=== PATIENT | female | born 1955 | race Caucasian/White ===

== ENCOUNTER 2017-09-20 21:35 | Observation (INO) | payer MEDICARE ==
[2017-09-20] MEDS ORDERED: SODIUM CHLORIDE 0.9% 1,000 ML IV STA (22:01)
--- NOTE | 2017-09-20 22:08 | ED ---
Chest Pain HPI - General Chief Complaint: Chest Pain Stated Complaint: diff breathing chest pain Time Seen by Provider: 09/20/17 21:45 Source: patient, family, RN notes reviewed Mode of arrival: ambulatory Limitations: no limitations - History of Present Illness Initial Comments: This is a 62-year-old female with a history of rheumatoid arthritis possibly asthma and she states the pain and increases risk for stroke who states she had the onset this afternoon of shortness of breath with exertion and with supine position vague mid anterior chest discomfort going from her and neck down to her lower chest wall. The chest pain was slightly. She states she did have an intermittently for last 1-2 days possibly 3 days. She states she is return from [place] about a week ago she drove her by automobile. She has no history of PE or heart disease. She states she did have a stress test about 10 years ago that was okay. MD Complaint: chest pain, other - Related Data Allergies Allergy/AdvReac Type Severity Reaction Status Date / Time codeine Allergy Dyspnea Verified 09/20/17 21:44 naproxen [From Aleve] Allergy Rash/Hives Verified 09/20/17 21:44 Penicillins Allergy Rash/Hives Verified 09/20/17 21:43 Sulfa (Sulfonamide Allergy Rash/Hives Verified 09/20/17 21:43 Antibiotics) Review of Systems ROS Statement: Those systems with pertinent positive or pertinent negative responses have been documented in the HPI. ROS Other: All systems not noted in ROS Statement are negative. EKG Findings - EKG Results: EKG: interpreted by ERMD, sinus rhythm (Sinus tachycardia rate 112 appear interval 134 QRS duration 76 QT since QTC of 324/[address]-T wave changes) Past Medical History Past Medical History: Cancer, Fibromyalgia, Hyperlipidemia, Rheumatoid Arthritis (RA) History of Any Multi-Drug Resistant Organisms: None Reported Past Surgical History: Appendectomy, Section, Orthopedic Surgery Additional Past Surgical History / Comment(s): catacrats,sinus, forehead basil cell,lt knee,jazmine foot Past Psychological History: Anxiety Smoking Status: Never smoker Past Alcohol Use History: Occasional Past Drug Use History: None Reported General Exam - General Exam Comments Initial Comments: This is a well-developed well-nourished awake alert oriented 3 Limitations: no limitations General appearance: alert, anxious Head exam: Present: atraumatic, normocephalic, normal inspection Eye exam: Present: normal appearance, PERRL, EOMI. Absent: scleral icterus, conjunctival injection, periorbital swelling ENT exam: Present: normal exam, mucous membranes moist Neck exam: Present: normal inspection. Absent: tenderness, meningismus, lymphadenopathy Respiratory exam: Present: normal lung sounds bilaterally. Absent: respiratory distress, wheezes, rales, rhonchi, stridor Cardiovascular Exam: Present: normal rhythm, tachycardia, normal heart sounds. Absent: systolic murmur, diastolic murmur, rubs, gallop, clicks GI/Abdominal exam: Present: soft, normal bowel sounds. Absent: distended, tenderness, guarding, rebound, rigid Extremities exam: Present: normal inspection, full ROM, normal capillary refill. Absent: tenderness, pedal edema, joint swelling, calf tenderness Back exam: Present: normal inspection Neurological exam: Present: alert, oriented X3, CN II-XII intact Psychiatric exam: Present: normal affect, normal mood Skin exam: Present: warm, dry, intact, normal color. Absent: rash Course Vital Signs 09/20/17 09/20/17 09/20/17 21:39 21:55 22:58 Temperature 100.1 F H Pulse Rate 118 H 113 H Respiratory 22 16 Rate Blood Pressure 173/79 164/78 O2 Sat by Pulse 99 99 98 Oximetry 09/20/17 09/20/17 23:22 23:31 Temperature Pulse Rate 116 H 112 H Respiratory 16 16 Rate Blood Pressure O2 Sat by Pulse Oximetry Chest Pain MDM - MDM I did review the imaging and report no acute findings. Patient persists in having tachycardia and dyspnea her d-dimer is negative for elevation EKG is negative for acute changes except for the tachycardia. Patient will be admitted for a rule out and further evaluation. I did discuss case with Dr. Ovalle. Cardiology will be consulted. The patient has complained of some intermittent chest pains over last several days. Cardiovascular etiology will be considered and ruled out Disposition Clinical Impression: Atypical chest pain, Tachycardia Disposition: ADMITTED IP TO THIS [facility] Condition: Stable Referrals: Gary Aly MD [Primary Care Provider] - 1-2 days
[2017-09-20 22:16] LABS: Basophils % (A) 0 %; Eosinophils # (A) 0.2 k/uL (0-0.7); Eosinophils % (A) 3 %; HCT 40.4 % (34.0-46.0); HGB 13.1 gm/dL (11.4-16.0); Lymphocytes % (A) 10 %; MCH 28.8 pg (25.0-35.0); MCHC 32.4 g/dL (31.0-37.0); Mean Platelet Volume 7.3; Monocytes # (A) 0.5 k/uL (0-1.0); Monocytes % (A) 5 %; Neutrophils # (A) 7.6 k/uL (1.3-7.7); Neutrophils % (A) 81 %; Platelet Count 209 k/uL (150-450); RBC 4.54 m/uL (3.80-5.40); WBC 9.4 k/uL (3.8-10.6)
[2017-09-20 22:27] LABS: ALT 26 U/L (9-52); AST 26 U/L (14-36); Albumin 3.8 g/dL (3.5-5.0); Alkaline Phosphatase 104 U/L (38-126); Anion Gap 12 mmol/L; Blood Urea Nitrogen 14 mg/dL (7-17); Calcium 9.2 mg/dL (8.4-10.2); Carbon Dioxide 26 mmol/L (22-30); Chloride 105 mmol/L (98-107); Creatine Kinase 41 U/L (30-135); Glucose 125 mg/dL (74-99); Sodium 143 mmol/L (137-145); Total Bilirubin 0.3 mg/dL (0.2-1.3); Total Protein 6.8 g/dL (6.3-8.2)
[2017-09-20 22:36] LABS: D-Dimer 0.55 mg/L FEU (<0.60); INR 0.9 (<1.2); Partial Thromboplastin Time 24.7 sec (22.0-30.0); Prothrombin Time 9.4 sec (9.0-12.0)
[2017-09-20 22:39] LABS: Creatine Kinase MB 0.4 ng/mL (0.0-2.4); Troponin I <0.012 ng/mL (0.000-0.034)
--- NOTE | 2017-09-20 22:41 | XR ---
EXAMINATION TYPE: XR chest 2V DATE OF EXAM: 09/20/2017 COMPARISON: 05/18/2012 HISTORY: Chest pain TECHNIQUE: Frontal and lateral views of the chest are obtained. FINDINGS: Heart and mediastinum are normal. Lungs are clear. Diaphragm is normal. There are chest le ads. Bony thorax is intact. IMPRESSION: Normal chest. No change.
[2017-09-20] MEDS ORDERED: IPRATROPIUM-ALBUTEROL 3 ML NEB INHALATION STA (23:01)
[2017-09-21] MEDS ORDERED: NITROGLYCERIN SL TABS 0.4 MG TAB SUBLINGUAL PRN (00:12)
[2017-09-21] MEDS ORDERED: HEPARIN SODIUM,PORCINE 5,000 UNIT/ML 1 ML VIAL IV ONE (00:12)
[2017-09-21] MEDS ORDERED: ASPIRIN 81 MG PO STA (00:12)
[2017-09-21] MEDS ORDERED: SODIUM CHLORIDE 0.9% 1,000 ML IV SCH (00:15)
[2017-09-21] MEDS ORDERED: HEPARIN SOD,PORK IN 0.45% NACL 25,000 UNIT in 0.45% NACL 1 500ML.BAG IV SCH (00:15)
[2017-09-21] MEDS ORDERED: HEPARIN SODIUM,PORCINE 5,000 UNIT/ML 1 ML VIAL IV PRN (00:38)
[2017-09-21 04:31] LABS: Creatine Kinase 34 U/L (30-135)
[2017-09-21 04:43] LABS: Creatine Kinase MB 0.3 ng/mL (0.0-2.4); Troponin I <0.012 ng/mL (0.000-0.034)
--- NOTE | 2017-09-21 08:58 | HP ---
HISTORY AND PHYSICAL Mrs. Andino is a 62-year-old female who has rather severe underlying rheumatoid arthritis, who developed chest pain yesterday associated with some shortness of breath and tachycardia. She felt she was just sitting and watching TV when pain developed in the anterior chest and seemed to hurt. She tried to move from side to side, get up and down and persisted and increased in severity through the night. She states she felt nauseated. No vomiting. No fever, chills, or unusual cough associated. She has returned from a trip from [place] about a week ago. No definite cardiac history. PAST MEDICAL HISTORY: Past medical history as mentioned is positive for underlying rheumatoid arthritis. No history of myocardial infarction, diabetes or stroke. The patient does have a history at times of elevated cholesterol, but has not been able to tolerate statins and has refused the use of statins as an outpatient. She does have history of chronic constipation, insomnia, anxiety, the rheumatoid and degenerative arthritis. REVIEW OF SYSTEMS: Review of systems as mentioned above. No unusual headache. No vomiting. No fever or chills. No cough or hemoptysis. No new urinary or bowel symptomatology. PREVIOUS SURGICAL HISTORY: Previous surgical history includes an appendectomy, previous and previous orthopedic surgeries. SOCIAL HISTORY: Negative for smoking. She lives locally with her , presently unemployed. PHYSICAL EXAMINATION: She is alert and oriented, appears to be having some pain with getting up and down in the examination bed. Last vital signs revealed temperature 97.9; her pulse had been up to 117, has gradually come down to the 90s, respirations 18, blood pressure 128/ 59, and she is 98% saturated on room air. Head and neck exam is unremarkable. Lungs are clear to auscultation. Heart is regular without murmurs or rubs appreciated. There is some diffuse chest wall tenderness mostly toward the right of the sternum. Abdomen is soft and nontender without rebound, guarding, or masses. Extremities revealed no unusual edema. No calf tenderness. Homans sign was negative. Neurologically, she is alert and oriented. Her cranial nerves are intact. No focal weakness noted. LABORATORY VALUES: Laboratory values revealed normal CBC with white count 9.4, hemoglobin 13.1, and platelet count of 209. Her D-dimer was 0.55. INR 0.9. Basic metabolic panel was unremarkable. Her BUN of 14, creatinine 0.7, giving a GFR greater than 90. Blood sugar was 125. Other liver function tests were all unremarkable. TSH was normal at 1.23. Troponins have been less than 0.012 x2, and CKs also unremarkable. The patient had a chest x-ray, which revealed normal chest, no changes and an EKG which showed sinus tachycardia without any ST-T wave changes. OVERALL IMPRESSION AT THIS POINT: 1. Chest pain, somewhat atypical, associated with sinus tachycardia in a patient with history of #2. 2. Fibromyalgia. 3. Rheumatoid arthritis. 4. Hyperlipidemia, unable to tolerate statins in the past. PLAN: At this point, the patient will be monitored. Further enzymes to be done. Consult has been placed with Cardiology. This was discussed with the patient and at bedside. She has been started on aspirin and further recommendations and treatment pending clinical response and results of above. ZHANG / CHRISTINE: [id number] / MTDD
[2017-09-21] MEDS ORDERED: ALPRAZolam 0.25 MG TAB PO PRN (09:18)
[2017-09-21 09:55] VITALS: RESP 16
--- NOTE | 2017-09-21 10:23 | ECHOF ---
Referral Reason: MEASUREMENTS -------- HEIGHT: 132.1 cm WEIGHT: 68.9 kg BP: 128/59 RVIDd: 3.1 cm (< 3.3) IVSd: 1.0 cm (0.6 - 1.1) LVIDd: 3.7 cm (3.9 - 5.3) LVPWd: 1.1 cm (0.6 - 1.1) IVSs: 1.6 cm LVIDs: 2.1 cm LVPWs: 1.6 cm Ao Diam: 2.7 cm (2.0 - 3.7) AV Cusp: 1.9 cm (1.5 - 2.6) LA Diam: 3.5 cm (2.7 - 3.8) MV EXCURSION: 10.738 mm (> 18.000) MV EF SLOPE: 74 mm/s (70 - 150) EPSS: 0.2 cm MV E Hakan: 0.97 m/s MV DecT: 109 ms MV A Hakan: 0.90 m/s MV E/A Ratio: 1.08 RAP: 5.00 mmHg RVSP: 15.61 mmHg FINDINGS -------- Sinus rhythm. This was a technically good study. The left ventricular size is normal. Left ventricular wall thickness is normal. Overall left vent ricular systolic function is normal with, an EF between 55 - 60 %. The right ventricle is mildly enlarged. The left atrium is normal in size. The right atrium is normal in size. The aortic valve is trileaflet, and appears structurally normal. No aortic stenosis or regurgitation. The mitral valve leaflets are mildly thickened. There is trace mitral regurgitation. Trace tricuspid regurgitation present. The right ventricular systolic pressure, as measured by Dopp ler, is 15.61mmHg. Pulmonic valve appears structurally normal. The aortic root size is normal. The pericardium is normal. CONCLUSIONS -------- 1. Sinus rhythm. 2. This was a technically good study. 3. The left ventricular size is normal. 4. Left ventricular wall thickness is normal. 5. Overall left ventricular systolic function is normal with, an EF between 55 - 60 %. 6. The right ventricle is mildly enlarged. 7. The left atrium is normal in size. 8. The right atrium is normal in size. 9. The aortic valve is trileaflet, and appears structurally normal. No aortic stenosis or regurgitati on. 10. The mitral valve leaflets are mildly thickened. 11. There is trace mitral regurgitation. 12. Trace tricuspid regurgitation present. 13. The right ventricular systolic pressure, as measured by Doppler, is 15.61mmHg. 14. Pulmonic valve appears structurally normal. 15. The aortic root size is normal. 16. The pericardium is normal. SLEEP SCIENTIST: Missy Trejo RDCS
[2017-09-21 11:11] LABS: Creatine Kinase 33 U/L (30-135)
[2017-09-21 11:22] LABS: Creatine Kinase MB 0.4 ng/mL (0.0-2.4); Troponin I <0.012 ng/mL (0.000-0.034)
--- NOTE | 2017-09-21 11:22 | P.CRDCN ---
History of Present Illness Consult date: 09/21/17 History of present illness: Mrs. Andino is a pleasant 62-year-old female past medical history significant for rheumatoid arthritis, dyslipidemia and fibromyalgia. She denies history of coronary artery disease, hypertension or diabetes mellitus and states she had a normal stress test done approximately 3 years ago. She apparently has dyslipidemia but cannot tolerate statins as an outpatient. We've been asked to see her in consultation for complaints of chest pain and tachycardia. She states starting yesterday she developed a pain in her upper anterior chest described as achy heavy sensation. She cannot specify an aggravating factor. The pain remains localized to the same location in her chest with no radiation to arms, back, neck or jaw. She denies associated shortness of breath, dizziness, palpitations, nausea, vomiting or diaphoresis. She states the pain is worse with movement, worse when she tries to lay flat or on her side and worse with deep inspiration or cough. The pain is reproducible. She continues to have the pain intermittently. She states she has been on Humira for many years, her last injection was 3 weeks ago. She is supposed to start an alternative infusion therapy today to treat her RA. EKG reveals sinus mechanism with no acute ST or T-wave abnormalities with heart rate 112. Chest xray is negative for an acute cardiopulmonary process. Laboratory data reviewed, hgb 13.1, plt 209, d-dimer 0.55, potassium 4.0, magnesium 2.0, creatinine 0.7, proBNP 112, TSH 1.230 and cardiac enzymes negative x2. She takes no cardiac medications. Review of Systems At the time of my exam: CONSTITUTIONAL: Denies fever. Denies chills. EYES: Denies blurred vision. Denies vision changes. Denies eye pain. EARS, NOSE, MOUTH & THROAT: Denies headache. Denies sore throat. Denies ear pain. CARDIOVASCULAR: Complains of reproducible chest pain. Denies shortness of breath. Denies orthopnea. Denies PND. Denies palpitations. RESPIRATORY: Denies cough. GASTROINTESTINAL: Denies abdominal pain. Denies diarrhea. Denies constipation. Denies nausea. Denies vomiting. MUSCULOSKELETAL: Denies myalgias. INTEGUMENTARY: Denies pruitis. Denies rash. NEUROLOGIC: Denies numbness. Denies tingling. Denies weakness. PSYCHIATRIC: Denies anxiety. Denies depression. ENDOCRINE: Denies fatigue. Denies weight change. Denies polydipsia. Denies polyurina. GENITOURINARY: Denies burning, hematuria or urgency with micturation. HEMATOLOGIC: Denies history of anemia. Denies bleeding. Past Medical History Past Medical History: Cancer, Fibromyalgia, Hyperlipidemia, Rheumatoid Arthritis (RA) Additional Past Medical History / Comment(s): basal cell carcinoma x2 on forehead History of Any Multi-Drug Resistant Organisms: None Reported Past Surgical History: Appendectomy, Section, Orthopedic Surgery Additional Past Surgical History / Comment(s): catacrats,sinus, forehead basil cell,lt knee,jazmine foot, tummy tuck, chin lift, eye bluff Additional Past Anesthesia/Blood Transfusion Reaction / Comment(s): pt reports it takes a long time to wake up from anesthesia Past Psychological History: Anxiety Smoking Status: Former smoker Past Alcohol Use History: Occasional Past Drug Use History: None Reported - Past Family History Mother Additional Family Medical History / Comment(s): MTHFR Father Family Medical History: Cancer Additional Family Medical History / Comment(s): MTHFR, passed from esophageal cancer Son(s) Additional Family Medical History / Comment(s): lyme disease, chronic fatigue syndrome Brother(s) Additional Family Medical History / Comment(s): liver failure Sister(s) History Unknown: Yes Medications and Allergies Home Medications Medication Instructions Recorded Confirmed Type ALPRAZolam [Xanax] 0.25 mg PO HS PRN 09/21/17 09/21/17 History Calcium/Vit D3(Unknown Dose) 1 tab PO DAILY 09/21/17 09/21/17 History Fluticasone Nasal [place] [Flonase 1 - 2 spray EA NOSTRIL DAILY PRN 09/21/1709/21 History Nasal Dup[place]] Gabapentin [Neurontin] 100 mg PO HS 09/21/17 09/21/17 History Ibuprofen [Motrin] 600 mg PO Q8HR PRN 09/21/17 09/21/17 History L.acidoph,Paracasei, B.lactis 1 cap PO DAILY 09/21/17 09/21/17 History [Probiotic] Loratadine [Claritin] 10 mg PO DAILY 09/21/17 09/21/17 History Magnesium(Unknown Dose) 1 tab PO DAILY 09/21/17 09/21/17 History Omeprazole [PriLOSEC] 20 mg PO DAILY 09/21/17 09/21/17 History Polyethylene Glycol 3350 [Miralax] 17 gm PO DAILY PRN 09/21/17 09/21/17 History Ranitidine HCl [Zantac] 150 mg PO HS 09/21/17 09/21/17 History Red Yeast Rice 600 mg PO DAILY 09/21/17 09/21/17 History Allergies Allergy/AdvReac Type Severity Reaction Status Date / Time alendronate sodium Allergy Unknown Verified 09/21/17 09:24 [From Fosamax] bacitracin Allergy Unknown Verified 09/21/17 09:24 [From Neosporin ([id number])] cephalexin [From Keflex] Allergy Unknown Verified 09/21/17 09:24 clarithromycin [From Biaxin] Allergy Unknown Verified 09/21/17 09:24 codeine Allergy Dyspnea Verified 09/21/17 09:24 Iodinated Contrast- Oral and Allergy Unknown Verified 09/21/17 09:24 IV Dye naproxen [From Aleve] Allergy Rash/Hives Verified 09/21/17 09:24 neomycin Allergy Unknown Verified 09/21/17 09:24 [From Neosporin ([id number])] NSAIDS (Non-Steroidal Allergy Unknown Verified 09/21/17 09:24 Anti-Inflamma Penicillins Allergy Rash/Hives Verified 09/21/17 09:24 polymyxin B Allergy Unknown Verified 09/21/17 09:24 [From Neosporin ([id number])] povidone-iodine Allergy Unknown Verified 09/21/17 09:24 [From Betadine] soap [From Betadine] Allergy Unknown Verified 09/21/17 09:24 Sulfa (Sulfonamide Allergy Rash/Hives Verified 09/21/17 09:24 Antibiotics) sulfamethoxazole Allergy Unknown Verified 09/21/17 09:24 [From Septra] trimethoprim [From Septra] Allergy Unknown Verified 09/21/17 09:24 diclofenac AdvReac TINNITUS Verified 09/21/17 09:24 Physical Exam Vitals: Vital Signs Temp Pulse Pulse Resp BP BP Pulse Ox 09/21/17 08:00 98.6 F 103 H 16 129/73 99 09/21/17 04:00 97.7 F 91 18 128/59 98 09/21/17 01:45 16 09/21/17 01:08 98.1 F 120 H 16 174/65 98 09/21/17 00:38 117 H 16 131/63 98 09/20/17 23:31 112 H 16 09/20/17 23:22 116 H 16 09/20/17 22:58 113 H 16 164/78 98 09/20/17 21:55 99 09/20/17 21:39 100.1 F H 118 H 22 173/79 99 Intake and Output 09/20/17 09/21/17 09/21/17 22:59 06:59 14:59 Intake Total 185 450 Balance 185 450 Intake: IV 185 Heparin Sod,Pork in 0.45% 85 NaCl 25,000 unit In 0.45 % NaCl 1 500ml.bag @ 12 UNITS/KG/HR 16.54 mls/hr IV .Q24H JIMMY Rx#: [id number] Sodium Chloride 0.9% 1, 100 000 ml @ 20 mls/hr IV . Q24H JIMMY Rx#:[id number] Oral 450 Other: Voiding Method Toilet Toilet # Voids 3 Weight 68.946 kg Blood pressure 129/73 heart rate 103 afebrile maintaining oxygen saturation on room air GENERAL: This is a 62-year-old female in no apparent distress at the time of my examination. HEENT: Head is atraumatic, normocephalic. Pupils are equal, round. Sclerae anicteric. Conjunctivae are clear. Mucous membranes of the mouth are moist. Neck is supple. There is no jugular venous distention. No carotid bruit is heard. LUNGS: Clear to auscultation no wheezes, rales or rhonchi. Mild chest wall tenderness is noted on palpation or with deep breathing. HEART: Regular rate and rhythm without murmurs, rubs or gallops. S1 and S2 heard. ABDOMEN: Soft, nontender. Bowel sounds are heard. No organomegaly noted. EXTREMITIES: No evidence of peripheral edema and no calf tenderness noted. VASCULAR: Radial and dorsalis pedis pulses palpated, no evidence of clubbing. NEUROLOGIC: Patient is awake, alert and oriented x3. Results 09/20/17 22:08 09/20/17 22:08 Cardiac Enzymes 09/20/17 09/20/17 09/21/17 Range/Units 22:08 22:08 03:59 AST 26 (14-36) U/L CK-MB (CK-2) 0.4 0.3 (0.0-2.4) ng/mL Troponin I <0.012 <0.012 (0.000-0.034) ng/mL Coagulation 09/20/17 09/21/17 Range/Units 22:08 06:38 PT 9.4 (9.0-12.0) sec APTT 24.7 54.9 H (22.0-30.0) sec CBC 09/20/17 Range/Units 22:08 WBC 9.4 (3.8-10.6) k/uL RBC 4.54 (3.80-5.40) m/uL Hgb 13.1 (11.4-16.0) gm/dL Hct 40.4 (34.0-46.0) % Plt Count 209 (150-450) k/uL Comprehensive Metabolic Panel 09/20/17 Range/Units 22:08 Sodium 143 (137-145) mmol/L Potassium 4.0 (3.5-5.1) mmol/L Chloride 105 (98-107) mmol/L Carbon Dioxide 26 (22-30) mmol/L BUN 14 (7-17) mg/dL Creatinine 0.70 (0.52-1.04) mg/dL Glucose 125 H (74-99) mg/dL Calcium 9.2 (8.4-10.2) mg/dL AST 26 (14-36) U/L ALT 26 (9-52) U/L Alkaline Phosphatase 104 (38-126) U/L Total Protein 6.8 (6.3-8.2) g/dL Albumin 3.8 (3.5-5.0) g/dL Current Medications Generic Name Dose Route Start Last Admin Trade Name Freq PRN Reason Stop Dose Admin Alprazolam 0.25 mg 09/21/17 09:18 Xanax PO BID PRN Anxiety Aspirin 81 mg 09/22/17 09:00 Aspirin PO DAILY JIMMY Heparin Sodium (Porcine) 0 unit 09/21/17 00:38 Heparin IV PER PROTOCOL PRN Low PTT Protocol Sodium Chloride 1,000 mls @ 20 mls/hr 09/21/17 00:15 09/21/17 02:02 Saline 0.9% IV 20 mls/hr .Q24H JIMMY Administration Nitroglycerin 0.4 mg 09/21/17 00:12 Nitrostat SUBLINGUAL Q5M PRN Chest Pain Intake and Output 09/20/17 09/21/17 09/21/17 22:59 06:59 14:59 Intake Total 185 450 Balance 185 450 Intake: IV 185 Heparin Sod,Pork in 0.45% 85 NaCl 25,000 unit In 0.45 % NaCl 1 500ml.bag @ 12 UNITS/KG/HR 16.54 mls/hr IV .Q24H JIMMY Rx#: [id number] Sodium Chloride 0.9% 1, 100 000 ml @ 20 mls/hr IV . Q24H JIMMY Rx#:[id number] Oral 450 Other: Voiding Method Toilet Toilet # Voids 3 Weight 68.946 kg 09/20/17 22:08 09/20/17 22:08 Assessment and Plan Assessment: ASSESSMENT 1. Pleuritic chest pain 2. Rheumatoid arthritis 3. Fibromyalgia 4. Anxiety 5. Former tobacco use PLAN Obtain 2D echocardiogram and doppler study to assess cardiac structure and function. Continue to obtain cardiac enzymes to rule out an acute coronary event. If cardiac enzymes are negative she is stable from a cardiac perspective. Follow up with Dr. Hinton in 2-3 weeks for outpatient stress testing once she is stable with her RA. Thank you kindly for this consultation. The above impression and plan of care have been discussed and directed by the signing physician. Tatyana Shukla, nurse practitioner, acting as scribe for signing physician.
[2017-09-21 11:43] LABS: Cholesterol 204 mg/dL (<200); HDL Cholesterol 65 mg/dL (40-60); LDL Cholesterol,Calculated 129 mg/dL (0-99); Triglycerides 49 mg/dL (<150)
[2017-09-21 11:58] VITALS: BP 120/50; PULSE 100; TEMP 98.9
--- NOTE | 2017-09-21 17:49 | DS ---
DISCHARGE SUMMARY Mrs. Andino is a 62-year-old female who presented early this morning to [facility] with a complaint of chest pain. She describes in the upper chest as a pressure sensation that seemed to be more developed while she was moving and turning side -to- side as it 1st developed while she was watching TV. She denies any recent history of falls. She denied any fever or chills. On examination did elicit some chest wall tenderness. EKG revealed sinus rhythm, although there was some mild tachycardia which improved during her observational period Laboratory studies revealed normal troponins and normal CKs x3. Cholesterol was 204 with a LDL cholesterol of 129 and HDL of 65. Her thyroid TSH was normal. Blood sugar randomly was slightly high at 125. Her D- dimer was 55. CBC was unremarkable with a white count of 9, hemoglobin 13, and platelet count 209. Liver function tests were normal. BUN 14, creatinine 0.7 giving her a GFR of greater than 90. Her chest x-ray was normal without acute change. Her echocardiogram was performed. This revealed a normal ejection fraction of 55-60 %. The left ventricular wall thickness was normal. Left atrium was normal in size. No marked valvular changes were noted. Aortic root was normal. Pericardium was normal. The patient was able to be ambulated. Plans are for patient to be discharged to home with follow up with drafter apprentice and myself. She has continued taking her previous home medications with the addition of prednisone taper for her costochondritis 10 mg for 3 times a day for 5 days, 10 mg tablets twice a day for another 5 days and then one 10 mg tablet daily for 5 days. FINAL DISCHARGE DIAGNOSES: 1. Costochondritis/Tseitze syndrome with chest pain and chest wall pain and atypical chest pain with history of underlying rheumatoid arthritis, hyperlipidemia, but unable to tolerate statins in the past and underlying degenerative joint disease. 2. Insomnia. 3. Generalized anxiety. MMODL / IJN: [id number] / JIMBO
[2017-09-22] MEDS ORDERED: ASPIRIN 325 MG TAB PO SCH (09:00)
[2017-09-22] MEDS ORDERED: ASPIRIN 81 MG PO SCH (09:00)
== END 2017-09-21 13:29 | disposition home or self-care (01) ==
LOC: EC 21:35 → 3OBS 09-21 00:12
PROVIDERS: ADMIT Internal Medicine; ATTEND Internal Medicine
DX: M94.0 Chondrocostal junction syndrome [Tietze] (principal); M06.9 Rheumatoid arthritis, unspecified; M79.7 Fibromyalgia; M19.90 Unspecified osteoarthritis, unspecified site; R06.02 Shortness of breath; R00.0 Tachycardia, unspecified; F41.1 Generalized anxiety disorder; G47.00 Insomnia, unspecified; E78.5 Hyperlipidemia, unspecified; Z79.51 Long term (current) use of inhaled steroids; Z79.899 Other long term (current) drug therapy; Z88.0 Allergy status to penicillin; Z88.2 Allergy status to sulfonamides; Z88.5 Allergy status to narcotic agent; Z88.1 Allergy status to other antibiotic agents; Z91.041 Radiographic dye allergy status; Z88.6 Allergy status to analgesic agent; Z88.8 Allergy status to other drugs, medicaments and biological substances; Z85.828 Personal history of other malignant neoplasm of skin; Z87.898 Personal history of other specified conditions; Z87.891 Personal history of nicotine dependence; Z80.0 Family history of malignant neoplasm of digestive organs; Z83.79 Family history of other diseases of the digestive system; Z83.1 Family history of other infectious and parasitic diseases
CPT/HCPCS: 96361 ×3; 96376 ×2; 96365 ×2; 99285 ×2; 96366; 36415; 94640; 93005; 93306; 85379; 83880; 80061; 80053; 84443; 82550 ×2; 82553 ×2; 83735; 84484 ×2; 85025; 85610; 85730 ×2; 71046; G0378; J1644 ×2

== ENCOUNTER → 2019-07-07 | Outpatient (CLI) | payer MEDICARE ==
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
== END | disposition home or self-care (01) ==
LOC: RADBDWWP 12:29
PROVIDERS: ATTEND Family Medicine
DX: M81.0 Age-related osteoporosis without current pathological fracture (principal)
CPT/HCPCS: 77080

== ENCOUNTER → 2019-07-27 | Outpatient (CLI) | payer MEDICARE ==
--- NOTE | 2019-07-27 09:52 | US ---
EXAMINATION TYPE: US abdomen complete DATE OF EXAM: 07/27/2019 COMPARISON: NONE CLINICAL HISTORY: R10.13 Epigastric pain, K21.9 GERD,R10.84. Generalized pain. Patient states her st [facility]. EXAM MEASUREMENTS: Liver Length: 12.7 cm Gallbladder Wall: 0.1 cm CBD: 0.4 cm Spleen: 10.0 cm Right Kidney: 10.7 x 4.3 x 3.8 cm Left Kidney: 10.1 x 4.2 x 4.4 cm Pancreas: wnl Liver: Appears coarse. Gallbladder: wnl, curves visualized Evidence for sonographic Limon's sign: neg CBD: wnl Spleen: wnl Right Kidney: No hydronephrosis or masses seen Left Kidney: No hydronephrosis or masses seen Upper IVC: wnl Abd Aorta: No AAA visualized IMPRESSION: 1. Normal abdomen ultrasound
== END | disposition home or self-care (01) ==
LOC: RADUSWWP 09:03
PROVIDERS: ATTEND Family Medicine
DX: R10.13 Epigastric pain (principal); K21.9 Gastro-esophageal reflux disease without esophagitis
CPT/HCPCS: 76700

== ENCOUNTER → 2019-11-24 | Outpatient (CLI) | payer MEDICARE ==
--- NOTE | 2019-11-24 15:44 | CT ---
EXAMINATION TYPE: CT abdomen pelvis w con DATE OF EXAM: 11/24/2019 COMPARISON: Correlation ultrasound 07/27/2019 HISTORY: 64-year-old female R10.11, RUQ pain with distention. TECHNIQUE: Contiguous axial scanning of the abdomen and pelvis following administration of 100 ml Iso kailash 300 IV contrast. Delayed images through the kidneys and coronal/sagittal reconstructions perform ed. CT DLP: 1010.7 mGycm Automated exposure control for dose reduction was used. FINDINGS: Heart normal size without pericardial effusion. Lung bases clear without pleural effusion. Moderate-sized hiatal hernia. No focal liver lesion or biliary ductal dilatation. Portal venous system is patent. Gallbladder, adrenal glands, kidneys, spleen, and pancreas appear within normal limits. No dilated small bowel, free fluid, or free air. No mesenteric or retroperitoneal lymphadenopathy. Mild episodic calcifications abdominal aorta without aneurysm. Oral contrast progressed to the splenic flexure. Mild stool burden. Distal colonic diverticulosis, gr eatest in the sigmoid colon. No pericolonic inflammatory change. Bladder urine distended. Tiny focus of air along the anterior bladder wall. Uterus surgically absent. Neither ovary is visualized. No abnormal fluid collection in the pelvis or pelvic lymphadenopathy. Bones: Degenerative changes right SI joint and L5-S1. Facet arthropathy lower lumbar spine. IMPRESSION: 1. TINY FOCUS OF AIR ANTERIORLY WITHIN THE BLADDER. CORRELATE FOR ANY RECENT INSTRUMENTATION AND TO E XCLUDE INFECTION/CYSTITIS. 2. DISTAL COLONIC DIVERTICULOSIS, GREATEST IN THE SIGMOID COLON WITHOUT EVIDENCE FOR ACUTE DIVERTICUL ITIS. 3. MODERATE SIZED HIATAL HERNIA.
== END | disposition home or self-care (01) ==
LOC: RADCTMAIN 14:31
PROVIDERS: ATTEND Surgery
DX: N32.9 Bladder disorder, unspecified (principal); K57.30 Diverticulosis of large intestine without perforation or abscess without bleeding; K44.9 Diaphragmatic hernia without obstruction or gangrene; R10.11 Right upper quadrant pain
CPT/HCPCS: 74177; Q9967

== ENCOUNTER → 2019-12-08 | Outpatient (CLI) | payer MEDICARE ==
--- NOTE | 2019-12-09 07:32 | NM ---
EXAMINATION TYPE: NM parathyroid DATE OF EXAM: 12/08/2019 COMPARISON: NONE HISTORY: Elevated parathyroid, disorder parathyroid scan, E 21.3, E 21.5 TECHNIQUE: Following administration of 25.6 mCi Tc99m Sestamibi. Anterior projection images of the neck and ches t were obtained 10 minutes and 3 hours post injection. SPECT images were not performed due to patient 's inability to cooperate. FINDINGS: Thyroid tracer washout: Delayed images demonstrate near-complete tracer washout from the thyroid. Parathyroid uptake: None. The two-hour delayed images do not demonstrate any focal abnormal persisten t uptake in the region of the parathyroid glands to suggest parathyroid adenoma. Normal uptake: There is physiological tracer uptake in the myocardium, liver, salivary glands, and th yroid gland. IMPRESSION: Normal parathyroid imaging study. No evidence for mediastinal uptake to suggest mediastinal parathyro id adenoma
== END | disposition home or self-care (01) ==
LOC: RADNMMAIN 11:09
PROVIDERS: ATTEND Family Medicine
DX: E21.5 Disorder of parathyroid gland, unspecified (principal); E21.3 Hyperparathyroidism, unspecified
CPT/HCPCS: 78070; A9500

== ENCOUNTER → 2020-05-09 | Outpatient (CLI) | payer MEDICARE ==
--- NOTE | 2020-05-09 12:50 | XR ---
EXAMINATION TYPE: XR chest 2V DATE OF EXAM: 05/09/2020 COMPARISON: 09/20/2017 TECHNIQUE: PA and lateral views submitted. HISTORY: Elevated PTH FINDINGS: The lungs are clear and there is no pneumothorax, pleural effusion, or focal pneumonia. Heart size normal. Interstitium stable from prior exam. Biapical pleural thickening. No pleural effusion. Mild h ypertrophic change of the vertebral column. IMPRESSION: 1. No acute process.
--- NOTE | 2020-05-09 12:52 | XR ---
EXAM TYPE: LUMBAR SPINE X RAY SERIES COMPARISON: NONE HISTORY: Back pain TECHNIQUE: 4 views are submitted. FINDINGS: Alignment is anatomic. The pedicles are intact. The transverse processes are intact. Diffuse osteo penia. Severe degenerative disc disease L5-S1. Vascular calcifications noted. Is a slight anterolisth esis of L5 relative to S1. Spondylolysis not excluded. IMPRESSION: 1. Severe degenerative disc disease L5-S1 with grade 1 anterolisthesis.
--- NOTE | 2020-05-09 12:53 | XR ---
EXAMINATION TYPE: XR thoracic spine complete DATE OF EXAM: 05/09/2020 COMPARISON: NONE HISTORY: Pain TECHNIQUE: 3 views submitted FINDINGS: Alignment is anatomic. There is no compression deformities. Mild to moderate multilevel degenerative disc disease with hypertrophic spurring. IMPRESSION: 1. Mild to moderate multilevel degenerative disc disease.
== END | disposition home or self-care (01) ==
LOC: RADXRMAIN 12:14
PROVIDERS: ATTEND Family Medicine
DX: M43.17 Spondylolisthesis, lumbosacral region (principal); M51.34 Other intervertebral disc degeneration, thoracic region; M51.37 Other intervertebral disc degeneration, lumbosacral region; E78.41 Elevated Lipoprotein(a)
CPT/HCPCS: 71046; 72072; 72100

== ENCOUNTER → 2020-05-10 | Outpatient (CLI) | payer MEDICARE ==
--- NOTE | 2020-05-10 13:03 | US ---
EXAMINATION TYPE: US abdomen complete DATE OF EXAM: 05/10/2020 COMPARISON: 07/27/2019 CLINICAL HISTORY: 64-year-old female Right upper quadrant pain R10.11. TECHNIQUE: Multiple sonographic images of the abdomen are obtained. FINDINGS: EXAM MEASUREMENTS: Liver Length: 12.1 cm Gallbladder Wall: 0.2 cm CBD: 0.4 cm Spleen: 10.6 cm Right Kidney: 10.4 x 4.3 x 3.6 cm Left Kidney: 11.1 x 4.9 x 4.6 cm Pancreas: The pancreatic tail is obscured by overlying bowel gas. Remainder shows no gross abnormali ty. Liver: wnl Gallbladder: wnl Evidence for sonographic Limon's sign: No CBD: wnl Spleen: wnl Right Kidney: wnl Left Kidney: wnl Upper IVC: wnl Abd Aorta: wnl IMPRESSION: Suboptimal visualization of the pancreas. Otherwise, unremarkable sonographic examination of the abdo men.
== END | disposition home or self-care (01) ==
LOC: RADUSWWP 10:37
PROVIDERS: ATTEND Family Medicine
DX: R10.11 Right upper quadrant pain (principal)
CPT/HCPCS: 76700

== ENCOUNTER → 2020-07-12 | Outpatient (CLI) | payer MEDICARE ==
--- NOTE | 2020-07-12 20:50 | CONS ---
CONSULTATION DATE OF SERVICE: 07/12/2020 This 64-year-old lady has been evaluated in [facility] for possible obstructive sleep apnea-hypopnea syndrome. HISTORY OF PRESENT ILLNESS/SLEEP-WAKE EVALUATION: Patient's usual sleep schedule is from 11 or 11:30 p.m. until 8 or 8:30 a.m. She does have problems with falling asleep, although she does not watch TV in the bedroom. Usually she sleeps on the side position. According to her family, she snores and has episodes of stopped breathing during sleep. She wakes up from sleep 2 times with 2 episodes of nocturia. Positive history of palpitations, grinding teeth, heartburn. In the morning, the patient wakes up tired, has difficulties paying attention, worries about her sleep, has problems with memory, irritability, anxiety, claustrophobia. Alexander Sleepiness Scale is 4. She usually does not take any naps. No history of hypnagogic hallucinations, sleep paralysis or cataplexy. PAST MEDICAL HISTORY: Positive for hypertension, hyperlipidemia, fibromyalgia, arthritis, sinusitis, bronchitis, headaches, anemia. PAST SURGICAL HISTORY: Surgery for low chin in 2010, surgery for cataract problem, appendectomy, , total hysterectomy. SOCIAL HISTORY: Former smoker; quit 40 years ago. Alcohol consumption rarely. MEDICATIONS: 1. Famotidine 20 mg as needed. 2. Prilosec 40 mg once a day. 3. Xanax 0.25 mg as needed in the evening. 4. Metoprolol 25 mg twice a day. 5. Pravastatin 20 mg once a day. 6. Plaquenil 200 mg twice a day. 7. Prolia. 8. Omeprazole 40 mg once a day. REVIEW OF SYSTEMS: Multiple awakenings from sleep. Difficulties initiating sleep. PHYSICAL EXAMINATION: GENERAL: A pleasant lady without distress. VITAL SIGNS: BP 129/64, HR 75, RR 15, height 4 feet 11-1/4 inches, weight 172.4 pounds, BMI 34.7, temperature 98.1, oxygen saturation at room air 99%. HEENT: PERRLA, EOMI. Evaluation of oropharynx showed tongue protrudes midline. Low position of soft palate. NECK: Supple. No JVD. Thyroid is not palpable. Neck measures 14-1/2 inches in circumference. LUNGS: Clear to percussion and to auscultation. Good air exchange. No wheezing or rhonchi. HEART: S1, S2 regular. No murmurs, gallops or rubs. ABDOMEN: Slightly obese. EXTREMITIES: No clubbing or cyanosis. MENTAL HEALTH AIDES TEACHER: Awake, alert, and oriented X3. Cranial nerves 2 to 7 intact. There is no fasciculation or atrophy. noted. No focal deficits observed. IMPRESSION: 1. Snoring, awakenings from sleep with nocturia, small oropharyngeal air space; obstructive sleep apnea-hypopnea syndrome. 2. Hypertension. 3. Hyperlipidemia. 4. History of fibromyalgia. 5. History of arthritis. 6. History of sinusitis. 7. History of bronchitis. 8. Headaches. 9. Acid reflux. 10.History of anemia. 11.History of episodes of extrasystoles. 12.Retrognathia. PLAN: 1. Polysomnography for evaluation of patient's breathing during sleep. 2. CPAP/BiPAP titration if sleep study confirms obstructive sleep apnea-hypopnea syndrome. 3. Preferable position during sleep on the side. 4. No driving if patient feels any sleepiness. 5. I will see patient for follow up visit to explain results of testing and following plan. Thank you very much for referring this patient for consultation. Sincerely, Tyrell Weston MD, PhD, FAASM Diplomat of [employer] [place] [employer] [facility] [place] ZHANG / CHRISTINE: [id number] /
== END | disposition home or self-care (01) ==
LOC: SLEEP 17:11
PROVIDERS: ATTEND Internal Medicine
DX: G47.33 Obstructive sleep apnea (adult) (pediatric) (principal); I10 Essential (primary) hypertension; E78.5 Hyperlipidemia, unspecified; R51.9 Headache, unspecified; K21.9 Gastro-esophageal reflux disease without esophagitis; Z87.39 Personal history of other diseases of the musculoskeletal system and connective tissue; Z86.2 Personal history of diseases of the blood and blood-forming organs and certain disorders involving the immune mechanism; Z86.79 Personal history of other diseases of the circulatory system; Z79.01 Long term (current) use of anticoagulants; Z79.899 Other long term (current) drug therapy; M26.19 Other specified anomalies of jaw-cranial base relationship
CPT/HCPCS: 99211

== ENCOUNTER → 2020-08-27 | Outpatient (CLI) | payer MEDICARE ==
--- NOTE | 2020-08-27 11:06 | NM ---
EXAMINATION TYPE: NM hepatobiliary w EF DATE OF EXAM: 08/27/2020 COMPARISON: Ultrasound 05/10/2020 HISTORY: Right upper quadrant pain TECHNIQUE: After the intravenous administration of 5 mCi Tc 99m Mebrofenin hepatobiliary scintigraphy is performed. Immediate images post injection. FINDINGS: There is satisfactory initial accumulation of tracer by the liver. The gallbladder is visualized wit hin 14 minutes. The small bowel activity is noted within 22 minutes. At one hour 8 ounces of oral e nsure plus is given to mimic CCK and gallbladder ejection fraction is calculated at 77 %, in the norm al range. Therefore there is no scintigraphic evidence of cystic or common bile duct obstruction to suggest acute cholecystitis or gallbladder dyskinesia. IMPRESSION: Exam is within normal limits.
== END | disposition home or self-care (01) ==
LOC: RADNMMAIN 06:51
PROVIDERS: ATTEND Family Medicine
DX: R10.11 Right upper quadrant pain (principal)
CPT/HCPCS: 78226; A9537

== ENCOUNTER → 2020-09-14 | Outpatient (CLI) | payer MEDICARE ==
--- NOTE | 2020-09-14 11:30 | US ---
EXAMINATION TYPE: US thyroid st tissue head/neck DATE OF EXAM: 09/14/2020 COMPARISON: NONE CLINICAL HISTORY: Primary hyperthyroidism E21.0. GLAND SIZE: Right Lobe: 3.8 x 1.5 x 1.1 cm Overall Parenchyma: homogenous Left Lobe: 5.2 x 1.5 x 1.4cm Overall Parenchyma: homogeneous Isthmus Thickness: 0.3 cm NODULES RIGHT: # of nodules measured on right: 0 LEFT: # of nodules measured on left: 1 1. 1.9 X 1.4 x 1.3 cm, mid, mixed cystic and solid, nodule, which is wider than tall, with smooth m argins, without echogenic foci. ISTHMUS: # of nodules measured in the isthmus: 0 Bilateral neck scanned, no evidence of lymphadenopathy. IMPRESSION: 1.9 cm left thyroid nodule 2017 ACR TI-RADS LEVEL: TR-RADS 3 - Mildly Suspicious: Follow if > 1.5 cm, FNA if > 2.5 cm *Highest TI-RADS level nodule reported
--- NOTE | 2020-09-14 14:29 | NM ---
EXAMINATION TYPE: NM parathyroid w/spect DATE OF EXAM: 09/14/2020 COMPARISON: 12/08/2019 HISTORY: Primary hyperparathyroidism TECHNIQUE: Following administration of 24.2 mCi Tc99m Sestamibi. Anterior projection images of the neck and ches t were obtained 10 minutes and 3 hours post injection. SPECT images of the neck and chest were obtai ana m and reconstructed in three axes. FINDINGS: Thyroid tracer washout: Delayed images demonstrate near-complete tracer washout from the thyroid. Parathyroid uptake: None. The two-hour delayed images do not demonstrate any focal abnormal persisten t uptake in the region of the parathyroid glands to suggest parathyroid adenoma. Normal uptake: There is physiological tracer uptake in the myocardium, liver, salivary glands, and th yroid gland. IMPRESSION: Normal parathyroid imaging study. No evidence for mediastinal uptake to suggest mediastinal parathyro id adenoma
== END | disposition home or self-care (01) ==
LOC: RADNMMAIN 10:05
PROVIDERS: ATTEND Internal Medicine Endocrinology, Diabetes & Metabolism
DX: E21.0 Primary hyperparathyroidism (principal); E04.1 Nontoxic single thyroid nodule
CPT/HCPCS: 76536; 78071; A9500

== ENCOUNTER → 2020-12-13 | Outpatient (CLI) | payer MEDICARE ==
--- NOTE | 2020-12-13 16:53 | XR ---
EXAMINATION TYPE: XR chest 2V DATE OF EXAM: 12/13/2020 COMPARISON: Chest x-ray 05/09/2020 HISTORY: Abnormal breath sounds, shortness of breath TECHNIQUE: Frontal and lateral views of the chest are obtained. FINDINGS: There is no focal air space opacity, pleural effusion, or pneumothorax seen. The cardiac silhouette size is within normal limits. The osseous structures are intact. IMPRESSION: No acute cardiopulmonary process.
--- NOTE | 2020-12-18 10:30 | MR ---
EXAMINATION TYPE: MR abdomen wo/w con DATE OF EXAM: 12/13/2020 COMPARISON: Ultrasound abdomen 05/10/2020. CT abdomen pelvis 11/24/2019. HISTORY: . Intra-abdominal and pelvic swelling, mass and lump, unspecified site. Abnormal imaging TECHNIQUE: Multiplanar, multisequence images of the abdomen were obtained without and with IV contras t. 7.5 mL intravenous Gadavist contrast administered. FINDINGS: Lung bases: No pleural or pericardial effusion. Liver: Normal. Biliary: No biliary ductal dilatation. Pancreas: Normal. Spleen: Normal. Adrenals: Normal. Kidneys: Normal. Bowel: Moderate hiatal hernia. Visualized bowel loops demonstrate no evidence of obstruction. Lymph nodes: No lymphadenopathy. Peritoneum: No ascites. Vasculature: Abdominal aorta normal in caliber. Osseous structures: No marrow-replacing lesions seen. IMPRESSION: 1. Moderate hiatal hernia. 2. Otherwise normal MRI of the abdomen with no evidence of mass or ascites.
== END | disposition home or self-care (01) ==
LOC: RADMRIMAIN 09:18
PROVIDERS: ATTEND Family Medicine
DX: K44.9 Diaphragmatic hernia without obstruction or gangrene (principal); R19.00 Intra-abdominal and pelvic swelling, mass and lump, unspecified site; R93.89 Abnormal findings on diagnostic imaging of other specified body structures
CPT/HCPCS: 71046; 74183; A9585

== ENCOUNTER 2021-01-09 12:44 | Emergency (ER) | payer MEDICARE ==
[2021-01-09 13:15] VITALS: BP 124/75; PULSE 70; RESP 20; TEMP 98.4
[2021-01-09] MEDS ORDERED: ACETAMINOPHEN TAB 500 MG TAB PO STA (13:45)
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
[2021-01-09] MEDS ORDERED: KETOROLAC 15 MG/ML 1 ML VIAL IM STA (16:01)
--- NOTE | 2021-01-09 16:22 | XR ---
EXAMINATION TYPE: XR cervical spine limited DATE OF EXAM: 01/09/2021 COMPARISON: NONE HISTORY: Pain TECHNIQUE: 3 views are submitted. FINDINGS: The odontoid is intact. There are no compression deformities. The prevertebral soft tissue structur es are within normal limits. Diffuse osteopenia with calcification soft tissue the right neck. Hyper trophic and degenerative changes at levels C3-C7. Multilevel facet arthropathy. IMPRESSION: 1. Diffuse osteopenia with multilevel degenerative disc disease.
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
== END 2021-01-09 16:39 | disposition home or self-care (01) ==
LOC: EC 12:44
DX: S06.0X0A Concussion without loss of consciousness, initial encounter (principal); S16.1XXA Strain of muscle, fascia and tendon at neck level, initial encounter; M94.0 Chondrocostal junction syndrome [Tietze]; M79.7 Fibromyalgia; Z87.891 Personal history of nicotine dependence; Z79.899 Other long term (current) drug therapy; Z88.1 Allergy status to other antibiotic agents; Z88.5 Allergy status to narcotic agent; Z88.8 Allergy status to other drugs, medicaments and biological substances; Z88.6 Allergy status to analgesic agent; Z88.0 Allergy status to penicillin; Z88.2 Allergy status to sulfonamides; Z91.048 Other nonmedicinal substance allergy status; V18.0XXA Pedal cycle driver injured in noncollision transport accident in nontraffic accident, initial encounter; Y93.55 Activity, bike riding
CPT/HCPCS: 99284; 96372; 72040; 71046; 70450; J1885

== ENCOUNTER → 2021-03-06 | Outpatient (CLI) | payer MEDICARE ==
--- NOTE | 2021-03-06 19:21 | NM ---
EXAMINATION TYPE: NM parathyroid w/spect DATE OF EXAM: 03/06/2021 COMPARISON: Prior nuclear medicine parathyroid scan 09/14/2020 and 12/08/2019 HISTORY: E21.0 hyperparathyroidism E55.9 Vit D deficiency TECHNIQUE: Following administration of 24 mCi Tc99m Sestamibi. Anterior projection images of the neck and chest were obtained 10 minutes and 3 hours post injection. SPECT images of the neck and chest were obtaine d and reconstructed in three axes. FINDINGS: Thyroid tracer washout: Delayed images demonstrate near-complete tracer washout from the thyroid. Parathyroid uptake: None. The two-hour delayed images do not demonstrate any focal abnormal persisten t uptake in the region of the parathyroid glands to suggest parathyroid adenoma. Normal uptake: There is physiological tracer uptake in the myocardium, liver, salivary glands, and th yroid gland. IMPRESSION: Normal parathyroid imaging study. No evidence for mediastinal uptake to suggest mediastinal parathyro id adenoma. The exam is stable compared to prior nuclear medicine parathyroid scans.
== END | disposition home or self-care (01) ==
LOC: RADNMMAIN 10:12
PROVIDERS: ATTEND Internal Medicine Endocrinology, Diabetes & Metabolism
DX: E55.9 Vitamin D deficiency, unspecified (principal); E21.0 Primary hyperparathyroidism
CPT/HCPCS: 78071; A9500

== ENCOUNTER → 2021-03-30 | Outpatient (CLI) | payer MEDICARE ==
[2021-03-30 13:19] LABS: African American GFR (CKD) 108.5 (60.0-200.0); Albumin 4.1 g/dL (3.8-4.9); Albumin/Globulin Ratio 1.69 (1.60-3.17); Anion Gap 10.5 mmol/L (4.00-12.00); BUN/Creat Ratio 17.75 Ratio (12.00-20.00); Blood Urea Nitrogen 10.9 mg/dL (9.0-27.0); Globulin 2.4 g/dL (1.6-3.3); Non-African American GFR(CKD) 93.6 (60.0-200.0); Potassium 4.3 mmol/L (3.5-5.5); T4, Free (Free Thyroxine) 1.22 ng/dL (0.800-1.800); Total Bilirubin 0.3 mg/dL (0.30-1.20); Total Protein 6.6 g/dL (6.2-8.2)
[2021-03-31 15:48] LABS: Creatinine 24 Hour,Urine 0.99 g/24Hr (0.80-1.80)
[2021-03-31 15:49] LABS: Calcium 24 Hour,Urine 74.1 mg/24Hr
== END | disposition home or self-care (01) ==
LOC: LABWHC1 08:55
PROVIDERS: ATTEND Internal Medicine Endocrinology, Diabetes & Metabolism
DX: E04.2 Nontoxic multinodular goiter (principal); E55.9 Vitamin D deficiency, unspecified; E21.0 Primary hyperparathyroidism
CPT/HCPCS: 36415; 80053; 81050; 82306; 82340; 82570; 83970; 84439; 84443

== ENCOUNTER → 2021-11-07 | Outpatient (CLI) | payer MEDICARE ==
--- NOTE | 2021-11-08 10:52 | US ---
EXAMINATION TYPE: US thyroid st tissue head/neck DATE OF EXAM: 11/07/2021 COMPARISON: US & NM CLINICAL HISTORY: E04.2 MULTINODULAR GOITER,E21.3 HYPERPARATHYROIDISM. Abnormal labs GLAND SIZE: Right Lobe: 4.0 x 1.3 x 1.2 cm Overall Parenchyma: Slightly heterogeneous Left Lobe: 4.2 x 1.6 x 1.4 cm Overall Parenchyma: Slightly heterogeneous Isthmus Thickness: 0.3 cm NODULES RIGHT: # of nodules measured on right: 0 LEFT: # of nodules measured on left: 1 1. 1.7 X 1.5 x 1.5 cm, lower, solid or almost completely solid, isoechoic nodule, which is wider th an tall, with ill-defined margins, with echogenic foci. TR 4 Prior size: 1.9 x 1.4 x 1.3 cm ISTHMUS: # of nodules measured in the isthmus: 0 Bilateral neck scanned, no evidence of lymphadenopathy. Stable nodule left thyroid IMPRESSION: 1. Moderately suspicious nodule left lobe thyroid, if biopsy has not been performed biopsy is recomme nded. 2017 ACR TI-RADS LEVEL: TR-RADS 4 - Moderately Suspicious: Follow if > 1 cm, FNA if > 1.5 cm *Highest TI-RADS level nodule reported
== END | disposition home or self-care (01) ==
LOC: RADUSWWP 16:04
PROVIDERS: ATTEND Internal Medicine Endocrinology, Diabetes & Metabolism
DX: E04.2 Nontoxic multinodular goiter (principal)
CPT/HCPCS: 76536

== ENCOUNTER 2022-05-15 15:55 | Emergency (ER) | payer MEDICARE ==
[2022-05-15 16:14] VITALS: RESP 18; TEMP 98.7
--- NOTE | 2022-05-15 17:01 | XR ---
EXAMINATION TYPE: XR soft tissue neck DATE OF EXAM: 05/15/2022 4:56 PM INDICATION: Patient age:Female; 66 years old; Reason for study: STATES FEELS FOOD GETTING STUCK IN MID THROAT; COMPARISON: Radiograph 01/09/2021 TECHNIQUE: The soft tissues of the neck were imaged in 2 views. FINDINGS: The prevertebral soft tissues are unremarkable. There is no evidence of mass effect or trac heal deviation. No acute osseous abnormality demonstrated. No evidence of subglottic narrowing. Hea ring devices noted in the ears. Mild multilevel disc degeneration changes with osteophyte formation d isc space narrowing and facet joint arthropathy., The osteophytes do indent upon the hypopharynx. IMPRESSION: 1. No significant abnormality identified within the soft tissues of the neck. No significant change from 01/09/2021. 2. Mild degeneration changes of the spine.
--- NOTE | 2022-05-15 22:53 | ED ---
ENT HPI - General Chief complaint: ENT Stated complaint: Foreign object stuck in throat Time Seen by Provider: 05/15/22 19:07 Source: patient, RN notes reviewed Mode of arrival: ambulatory Limitations: no limitations - History of Present Illness Initial comments: This is a 66-year-old female who presents to the emergency department with the feeling of something being stuck in her throat. States that she was eating koo last night, when she feels like a piece of it got stuck. Later in the day she ate chicken noodle soup, and states that it proceeded to come out of her nose. Now every time that she bends over, she feels like more chicken noodle soup is coming out of her nose. Also reports sinus pressure. She does have a known hiatal hernia and severe acid reflux for which she takes multiple medications including famotidine and Prilosec. Additionally, she has had a cough for the last several days. This started before the food got stuck in her throat, and she states that the cough is productive. Her recently got over a cold as well. She is taking [id number] medication with little to no relief. Denies any fevers, chills, dyspnea, chest pain, palpitations, abdominal pain, nausea, vomiting, diarrhea, back pain, or headaches. MD complaint: sore throat Onset/Timin -: days(s) - Related Data Home Medications Medication Instructions Recorded Confirmed ALPRAZolam [Xanax] 0.25 mg PO HS PRN 09/21/17 09/21/17 Calcium/Vit D3(Unknown Dose) 1 tab PO DAILY 09/21/17 09/21/17 Fluticasone Nasal [place] [Flonase 1 - 2 spray EA NOSTRIL DAILY PRN 09/21/17 09/21/17 Nasal [place]] Gabapentin [Neurontin] 100 mg PO HS 09/21/17 09/21/17 Ibuprofen [Motrin] 600 mg PO Q8HR PRN 09/21/17 09/21/17 L.acidoph,Paracasei, B.lactis 1 cap PO DAILY 09/21/17 09/21/17 [Probiotic] Loratadine [Claritin] 10 mg PO DAILY 09/21/17 09/21/17 Magnesium(Unknown Dose) 1 tab PO DAILY 09/21/17 09/21/17 Omeprazole [PriLOSEC] 20 mg PO DAILY 09/21/17 09/21/17 Ranitidine HCl [Zantac] 150 mg PO HS 09/21/17 09/21/17 Red Yeast Rice 600 mg PO DAILY 09/21/17 09/21/17 polyethylene glycoL 3350 [Miralax] 17 gm PO DAILY PRN 09/21/17 09/21/17 Previous Rx's Medication Instructions Recorded Benzonatate [Tessalon Perles] 100 mg PO TID PRN #15 capsule 05/15/22 Promethazine/Dextromethorphan 5 ml PO Q4-6H PRN #473 ml 05/15/22 [Promethazine-Dm Syrup] Allergies Allergy/AdvReac Type Severity Reaction Status Date / Time alendronate sodium Allergy Unknown Verified 01/09/21 13:10 [From Fosamax] bacitracin Allergy Unknown Verified 01/09/21 13:10 [From Neosporin ([id number])] cephalexin [From Keflex] Allergy Unknown Verified 01/09/21 13:10 clarithromycin [From Biaxin] Allergy Unknown Verified 01/09/21 13:10 codeine Allergy Dyspnea Verified 01/09/21 13:10 Gadolinium-Containing Allergy Unknown Verified 01/09/21 13:10 Contrast Medi Iodinated Contrast Media Allergy Unknown Verified 01/09/21 13:10 [Iodinated Contrast- Oral and IV Dye] naproxen [From Aleve] Allergy Rash/Hives Verified 01/09/21 13:10 neomycin Allergy Unknown Verified 01/09/21 13:10 [From Neosporin ([id number])] NSAIDS (Non-Steroidal Allergy Unknown Verified 01/09/21 13:10 Anti-Inflamma Penicillins Allergy Rash/Hives Verified 01/09/21 13:10 polymyxin B Allergy Unknown Verified 01/09/21 13:10 [From Neosporin ([id number])] povidone-iodine Allergy Unknown Verified 01/09/21 13:10 [From Betadine] soap [From Betadine] Allergy Unknown Verified 01/09/21 13:10 Sulfa (Sulfonamide Allergy Rash/Hives Verified 01/09/21 13:10 Antibiotics) sulfamethoxazole Allergy Unknown Verified 01/09/21 13:10 [From Septra] trimethoprim [From Septra] Allergy Unknown Verified 01/09/21 13:10 diclofenac AdvReac TINNITUS Verified 01/09/21 13:10 gadobutrol [From Gadavist] AdvReac Rash/Hives Verified 01/09/21 13:10 Review of Systems ROS Statement: Those systems with pertinent positive or pertinent negative responses have been documented in the HPI. ROS Other: All systems not noted in ROS Statement are negative. Past Medical History Past Medical History: Cancer, Fibromyalgia, Hyperlipidemia, Rheumatoid Arthritis (RA) Additional Past Medical History / Comment(s): basal cell carcinoma x2 on forehead History of Any Multi-Drug Resistant Organisms: None Reported Past Surgical History: Appendectomy, Section, Orthopedic Surgery Additional Past Surgical History / Comment(s): catacrats,sinus, forehead basil cell,lt knee,jazmine foot, tummy tuck, chin lift, eye [place] Additional Past Anesthesia/Blood Transfusion Reaction / Comment(s): pt reports it takes a long time to wake up from anesthesia Past Psychological History: Anxiety Smoking Status: Former smoker Past Alcohol Use History: Occasional Past Drug Use History: None Reported - Past Family History Mother Additional Family Medical History / Comment(s): MTHFR Father Family Medical History: Cancer Additional Family Medical History / Comment(s): MTHFR, passed from esophageal cancer Son(s) Additional Family Medical History / Comment(s): lyme disease, chronic fatigue syndrome Brother(s) Additional Family Medical History / Comment(s): liver failure Sister(s) History Unknown: Yes General Exam Limitations: no limitations General appearance: alert, in no apparent distress Head exam: Present: atraumatic, normocephalic, normal inspection ENT exam: Present: normal exam, normal oropharynx, mucous membranes moist, TM's normal bilaterally, normal external ear exam Neck exam: Present: normal inspection. Absent: tenderness, meningismus, lymphadenopathy Respiratory exam: Present: normal lung sounds bilaterally. Absent: respiratory distress, wheezes, rales, rhonchi, stridor Cardiovascular Exam: Present: regular rate, normal rhythm, normal heart sounds. Absent: systolic murmur, diastolic murmur, rubs, gallop, clicks GI/Abdominal exam: Present: soft, normal bowel sounds. Absent: distended, tenderness, guarding, rebound, rigid Neurological exam: Present: alert, oriented X3, CN II-XII intact Psychiatric exam: Present: normal affect, normal mood Skin exam: Present: warm, dry, intact, normal color. Absent: rash Course Vital Signs 05/15/22 05/15/22 16:09 23:36 Temperature 98.7 F Pulse Rate 114 H 107 H Respiratory 18 18 Rate Blood Pressure 131/69 133/96 O2 Sat by Pulse 97 98 Oximetry Medical Decision Making - Medical Decision Making This is a 66-year-old female who presents to the emergency department for a globus sensation in the throat and a cough. Covid, influenza, and strep testing were negative. X-ray of the soft tissue of the neck was obtained. My interpretation reveals no evidence of subglottic narrowing or tracheal deviation. Patient was able to drink a whole cup of water without difficulty, and none of it was regurgitated. She is already on multiple medications for the acid reflux including famotidine and prilosec, but there is nothing else to prescribe from our standpoint. Prescription for promethazine DM cough syrup and Tessalon Perles was provided. Advised that the promethazine DM can be sedating and she should take the first dose at night until she knows how it effects her. Instructed her to follow-up with Dr. Oslon regarding her symptoms, as she will likely need a new EGD. She was given strict return parameters, in that if she is unable to swallow altogether, she should return immediately. Return precautions reviewed in depth, the patient is instructed to return to the emergency department with any new, worsening, or concerning symptoms. Patient v erbalized understanding. This case was discussed in detail with the attending ED physician. Presentation, findings, and treatment plan discussed in detail as well. - Lab Data Lab Results 05/15/22 05/15/22 05/15/22 Range/Units 20:08 20:08 20:08 Coronavirus (PCR) Not Detected (Not Detectd) Influenza Type A RNA Not Detected (Not Detectd) Influenza Type B (PCR) Not Detected (Not Detectd) Group A Strep (PCR) NOT DETECTED (Not Detectd) - Radiology Data Radiology results: report reviewed, image reviewed Disposition Clinical Impression: Globus sensation, Sinusitis Disposition: HOME SELF-CARE Instructions (If sedation given, give patient instructions): Hiatal Hernia (ED), Diet for Stomach Ulcers and Gastritis (ED), GERD (Gastroesophageal Reflux Disease) (ED), Food Impaction (ED) Additional Instructions: Return to the emergency department with any new, worsening, or concerning symptoms, especially if you are unable to swallow whatsoever. You can take the cough syrup every 4-6 hours as needed. Take your first dose at night until you know how it affects you, as it may be sedating. The Tessalon Perles can be used up to 3 times daily, and are not sedating like the cough syrup this. Contact Dr. Olson's office for a follow-up appointment regarding your symptoms. Follow up with your primary care provider in 1-2 days. Prescriptions: Promethazine/Dextromethorphan [Promethazine-Dm Syrup] 5 ml PO Q4-6H PRN #473 ml PRN Reason: Cough Benzonatate [Tessalon Perles] 100 mg PO TID PRN #15 capsule PRN Reason: Cough Is patient prescribed a controlled substance at d/c from ED?: No Referrals: Zakiya Olivares [Primary Care Provider] - 1-2 days
[2022-05-15 23:37] VITALS: BP 133/96; PULSE 107
== END 2022-05-15 23:37 | disposition home or self-care (01) ==
LOC: EC 15:55
DX: J32.9 Chronic sinusitis, unspecified (principal); E78.5 Hyperlipidemia, unspecified; F41.9 Anxiety disorder, unspecified; K21.9 Gastro-esophageal reflux disease without esophagitis; Z88.0 Allergy status to penicillin; Z88.1 Allergy status to other antibiotic agents; Z88.2 Allergy status to sulfonamides; Z88.6 Allergy status to analgesic agent; Z88.8 Allergy status to other drugs, medicaments and biological substances; Z88.9 Allergy status to unspecified drugs, medicaments and biological substances; Z88.5 Allergy status to narcotic agent; Z91.041 Radiographic dye allergy status; Z91.048 Other nonmedicinal substance allergy status; Z79.1 Long term (current) use of non-steroidal anti-inflammatories (NSAID); Z87.891 Personal history of nicotine dependence; Z79.83 Long term (current) use of bisphosphonates; Z20.822 Contact with and (suspected) exposure to COVID-19
CPT/HCPCS: 70360; 87502; 87635; 87651; 99283